=== PATIENT | female | born 1945 | race African-American/Black ===

== ENCOUNTER 2021-01-28 22:45 | Emergency (ER) | payer MEDICARE ==
[~2021-01-28] VITALS: Ht 172.7 cm; Wt 104.3 kg
[2021-01-28 23:58] LABS: CLARITY,URINE CLOUDY (CLEAR); COLOR,URINE YELLOW (YELLOW); KETONES,URINE NEGATIVE (NEGATIVE); LEUKOCYTE ESTERASE ,URINE LARGE (NEGATIVE); NITRITE,URINE POSITIVE (NEGATIVE); PROTEIN,URINE DIPSTICK 2+ (NEGATIVE); URINE UROBILINOGEN 0.2 mg/dL (0.2 - 1)
[2021-01-29 00:06] LABS: BACTERIA,URINE MANY /HPF; EPITHELIAL CELLS,URINE FEW /LPF; WBC,URINE (MAN) >50 /HPF (0-5)
[2021-01-29 01:26] VITALS: BP 137/89
== END 2021-01-29 01:27 | disposition home or self-care (01) ==
LOC: ER 23:08
DX: T83.038A Leakage of other urinary catheter, initial encounter (principal); R33.9 Retention of urine, unspecified; N39.0 Urinary tract infection, site not specified
CPT/HCPCS: 51700; 81001; 87086; 87186; 99282